=== PATIENT | female | born 2005 | race Caucasian/White ===

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

== ENCOUNTER 2025-01-01 11:56 | Day surgery (SDC) | payer OTHER, SELFPAY ==
--- OUTSIDE RECORDS SUMMARY | 2024-10-13 17:30 | XMS_ITS ---
Author Organization [facility] Address [address] [facility] [address] [place] [address] Care Team Providers Care Production Control Expert Name Role Phone Katt Cuadra Primary Care Provider [phone] KATT CUADRA Unavailable Unavaila ble Migration, Provider Unavailable Unavailable REASON FOR VISIT [facility] Encounter Medications Medication SIG (Take, Route, Fr equency, Duration) Notes Start Date End Date Status OXcarbazepine 150 MG 1 tab(s) orally 2 t imes a day for 30 days 10/21/2022 Active busPIRone HCl 5 MG 1 tab(s) orally 3 ti mes a day for 30 days 10/21/2022 Active Encounters Encounter Location Date Provider Diagnosis [facility] [address] [place] [address] 10/13/2024 Provider Migration Mood disorder F39 Assessments Encounter Date Diagnosis (ICD Code) Assessment Notes Treatment Notes Treatment Clinical Notes Section Notes 10/13/2024 Mood disorder (ICD-10 - F39) Plan Of Treatment Medication Medication Name Sig Start Date Stop Date Notes OXcarbazepine 150 MG 1 tab(s) orally 2 t imes a day for 30 days 10/21/2022 busPIRone HCl 5 MG 1 tab(s) orally 3 ti mes a day for 30 days 10/21/2022 Progress Notes * Roberto RAMOSOB: 3 (19 yo F)Acc No.[id number]:10/13/2024 Patient: Raiza PEÑALOZA Provider: Leida Mitchell :2005 A ge:19 Y S ex:Female Date:10/13/2024 Address:[address] [place] [address], [id number] Pcp:Katt Cuadra Subjective: * Chief Complaints: * 1 . Multum To [facility] Conversion Encounter. * Medical History: Objective: * Vitals: Assessment: * Assessment: 1. M ood disorder - F39 (Primary) Plan: * Treatment: * * Electronic signature of Prov ider Migration on 01/01/2025 at 12:04 PM EDT Sign off status: Pending * Provider: Leida Mitchell Date: 10/13/2024 Generated for Betsy bryant/Julia/Brayan on: 01/01/2025 12:04 PM EDT
[2025-01-01] VITALS (17 sets, daily range): BP systolic 100–143; BP diastolic 55–92; PULSE 51–98; RESP 16–18; TEMP 36.3–36.8; O2SAT 95–100; BMI 29.8
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
--- OUTSIDE RECORDS SUMMARY | 2025-01-01 12:04 | XMS_ITS | Data Portability ---
Author Organization [facility] Address [address] [place] [address] Assessment No assessment recorded. Plan of Treatment Reminders Order Date Submit Date Provider Last Modified By Organization Details Last Modified Time Details Appointments None recorded. Lab PPD (purified protein derivative) , skin test 2024 025 [facility] [address], [address], 14:50:03 Referral None recorded. Procedures None recorded. Surgeries None recorded. Imaging None recorded. Medication Orders tuberculin PPD 5 tub. unit/0.1 mL intradermal injection solution 2024 025 [email or web address] Not available 16:07:09 Patient TargetsNo targets recorded. Patient InstructionsNo instructions recorded. Reason for Referral None Reported. Results Created Date Observation Date Name Description Value Unit Range Abnormal Flag Note LastModifiedBy Organization Detail LastModifiedTime 09/07/1909/07/2024 PPD (lincoln fied prote in deriv ative ), skin test TB negati ve Not Available [place] [address] [facility] [address], [place], [address], 09/05/2024 14:49:18 Result Notes None recorded. Medical Equipment None Reported. Medications Name Sig Start Date Stop Date Status Note LastModified by Organization Details LastModified Time tuberculin PPD 5 tub. unit/0.1 mL intradermal injection solution Inject 0.1 mL by intradermal route. 2024 active Not Available Not Available Not Avai lable Vitals None Recorded Social History None recorded. Functional Status None recorded. Mental Status None recorded. Family History Nothing Reported. Medical History No medical history recorded. Gynecological HistoryNo gynecological history recorded. Obstetrics History GPAL:G 0 P 0 0 0 0 Past Encounters Encounter ID Performer Location Encounter Start Date Encounter Closed Date Diagnosis/Indication Diagnosis SNOMED-CT Code Diagnosis ICD10 Code Diagnosis Note [id number] [facility] [address] [address] 09/05/2024 14:17:49 09/07/2024 03:52:02 History and physical examination, pre-employment 470754588 Z02.1 [id number] [facility] [address] [place] [address] 09/07/2024 14:50:26 09/12/2024 03:52:51 Health Concerns Section Related Observation LastModified by Organization Detai ls LastModified Time None Recorded Concern Status LastModified by Organization Details LastModified Time None Recorded Advance Directives Directive None Recorded Payers Insurance Date Sequence Insurance Name Policy Number Policy Alonzo Covered Member ID Alonzo Member ID Guarantor Name 09/05/2024 [facility] ESCREEN Raiza Harry [id number] Raiza Harry OBGyn Episode No OBEpisode recorded.
--- OUTSIDE RECORDS SUMMARY | 2025-01-01 12:04 | XMS_ITS | Patient Health Record ---
Author Organization [facility] Address [address] [place] [address] Care Team Providers Care Technical Cable Jointer Name Role Phone Katt Cuadra Primary Care Provider [phone] KATT CUADRA Unavailable Unavaila ble Migration, Provider Unavailable Unavailable Allergies No Known Allergies Reason For Referral No Information Medications Medication SIG (Take, Route, Fr equency, Duration) Notes Start Date End Date Status OXcarbazepine 150 MG 1 tab(s) orally 2 t imes a day for 30 days 10/21/2022 Active busPIRone HCl 5 MG 1 tab(s) orally 3 ti mes a day for 30 days 10/21/2022 Active Social History Tobacco Use: Social History Observation Description Date Details (start date - stop date) Current Smoker NA - NA Smoking: Question Answer Notes Are you a: current smoker How often do you smoke cigarettes? every day How many cigarettes a day do you smoke? 6-10 How soon after you wake up do you smoke your fir st cigarette? 6-30 min Are you interested in quitting? Ready to quit Problems Problem Type SNOMED Code ICD Code Onset Dates Problem Status W/U Status Risk Notes Problem [id number] Mood disorder (F39) Active confirmed Problem 51664529 Hyperthyroidism (E05.90) Active confirmed Problem 9576719 Thyromegaly (E01.0) Active confirmed Encounters Encounter Location Date Provider Diagnosis [facility] [address] [place], [place] [address] 10/13/2024 Provider Migration Mood disorder F39 Assessments Encounter Date Diagnosis (ICD Code) Assessment Notes Treatment Notes Treatment Clinical Notes Section Notes 10/13/2024 Mood disorder (ICD-10 - F39) Plan Of Treatment No Information Insurance Providers Payer Name Payer Address Payer Phone Subscriber Number Group Number Insured Name Patient Relationship to Insured Coverage Start Date Coverage End Date A[employer]NA [facility] [address] [address] [place] [id number] Raiza Harry Self - patient is the insured Medical (General) History Medical History History ICD Code Seizures Depression/Anxiety Hyperthyroidism PTSD Surgical History Surgery Date(Month/Year) lip surgery 2021 Hospitalization History Reason Date(Month/Year) [facility] 2018 [facility] 03/2022
--- OUTSIDE RECORDS SUMMARY | 2025-01-01 12:04 | XMS_ITS | Clinical Summary ---
Author Organization [facility] Address [address] [place] [phone] Phone Care Team Providers Care Family Lawyer Name Role Phone Fer Crowe MD Primary Care Physician [ ] Conditions or Problems Problem Name Problem Code Onset Date Status Entry Date Provider Comment Standard Description Annotate School physical 86914943 (SNOMED CT) Active Katina Marques TOOTH CUTTER PINION History and physical examination, school DERMATITIS CONTACT L25.9 (ICD-10-CM ) Inactive Fer Crowe MD Unspecified contact dermatitis, unspecified cause HEAD LICE PEDICULOS B85.2 (ICD-10-CM ) Inactive Fer Crowe MD Pediculosis, unspecified Medications Medication Instructions Start Date Stop Date Generic Name [facility] Provider OVIDE 0.5 % LOTN use as directed/may repeat in 1 wk if necessary 5 MALATHION [id number] Katina Marques TOOTH CUTTER PINION ELOCON 0.1 % EXTERNAL OINTMENT use on dry/chapped skin or insect bites tid as needed 5 MOMETASONE FUROATE [id number] Katina Marques TOOTH CUTTER PINION EL[place]ON 0.1 % EXTERNAL OINTMENT use on dry/chapped skin or insect bites tid as needed MOMETASONE FUROATE [id number] Fer Crowe MD OVIDE 0.5 % LOTN use as directed/may repeat in 1 wk if necessary MALATHION [id number] Fer Crowe MD Medications Administered No information available. Allergies, Adverse Reactions, Alerts Observed no known allergies at Results No information available. Plan of Care Type Date Detail Pending order Vision Screening ; quantitative; bilateral [id number] Pending order Havrix Intramusc ular Suspension 720 EL U/0.5ML VFC Pending order Menactra Intramu scular Injectable VFC Pending order Adacel Intramusc ular Suspension 5-2-15.5 VFC Procedures Code Procedure Name Date Entry Date CPT-39816LDX Havrix Intramuscular Suspension 720 EL U/ 0.5ML VFC CPT-52591JEF Menactra Intramuscular Injectable VFC 201 11/10/05 CPT-17284FGI Adacel Intramuscular Suspension 5-2-15.5 VFC CPT-G8447 Encounter documented using a certified EH R Vital Signs Date Name Value Unit Description BMI (Body Mass Index) 24.54 kg/m2 Bod y Mass Index (Ratio) Body Temperature 98.0 [degF] temperat ure E&M Body Temperature 36.7 Mari temperat ure in centigrade E&M BP Diastolic 60 mm[Hg] blood pressu re, diastolic BP Systolic 90 mm[Hg] blood pressur e, systolic Heart Rate 98 /min pulse rate Height 58 [in_us] height E&M Height 147.32 cm height in cent imeters E&M Respiratory Rate 18 /min respirat ory rate E&M Weight Measured 117 [lb_av] weight E& M Weight Measured 117 [lb_av] weight E& M Weight Measured 53.18 kg weight in kilograms E&M Immunizations Vaccine Administration Date Standard Description CVX Co de Dose vfc havrix intramuscular suspension 720 el u/0.5ml vfc havrix intramuscular suspension 720 el u/0.5ml 83 0.5 mL vfc menactra intramuscular injectable vfc menactra intramuscular injectable 114 0.5 mL vfc adacel intramuscular suspension 5-2-15.5 vfc adacel intramuscular suspension 5-2-15.5 115 0.5 mL Advance Directives No information available.
--- OUTSIDE RECORDS SUMMARY | 2025-01-01 12:05 | XMS_ITS | Clinical Summary ---
Author Organization [facility] Address [address] [place] [address] Care Team Providers Care Disaster Director Name Role Phone Tal Sanches MD Primary Care Provider [phone] Allergies No known active allergies Medications traZODone (Desyrel) 50 MG tablet 03/05/2022 Active hydrOXYzine HCl (Atarax) 25 MG tablet TAKE ONE (1) TABLET EVERY 12 HOURS BY ORAL ROUTE NEEDED FOR 14 DAYS. 03/05/2022 Active Vitamin D3 1.25 MG (15723 UT) capsule Take 50,000 Units by mouth 1 (one) time per week. 03/31/2022 Active sertraline (Zoloft) 50 MG tablet TAKE ONE HALF (1/2) TAB BY MOUTH DAILY FOR FOUR (4) DAYS. THEN, TAKE ONE (1) TAB BY MOUTH DAILY. 03/24/2022 Active levETIRAcetam (Keppra) 1000 MG tablet Take 500 mg by mouth 2 (two) times a day. Active Ventolin HFA 108 (90 Base) MCG/ACT inhaler 10/08/2022 Act jerry busPIRone (Buspar) 15 MG tablet Take 1 tablet (15 mg) by mouth 2 (two) times a day if needed. 05/31/2023 Active citalopram (CeleXA) 20 MG tablet TAKE ONE (1) TABLET EVERY DAY BY ORAL ROUTE FOR 30 DAYS. 06/16/2023 Active Active Problems Problem Noted Date Diagnosed Date Self-limiting autoimmune thy roiditis, transient hyper/hypothyroidism 06/20/2023 Epileptic seizure 06/14/2022 Vitamin D deficiency 06/14/2022 Uncontrolled hypertension 06/14/2022 Hot flashes 04/15/2022 Diarrhea 04/15/2022 Hyperthyroidism 03/16/2022 Sweating increase 03/16/2022 Cough 03/16/2022 Raspy voice 03/16/2022 Palpitation 03/16/2022 Tremor 03/16/2022 Heat intolerance 03/16/2022 Sleep disturbance 03/16/2022 Encounter for smoking cessation counseling 03/16 Social History Tobacco Use Types Packs/Day Years Used Date Smoking Tobacco: Former Cigarettes Smokeless Tobacco: Never Tobacco Cessation:Counseling Given: Not Answered Alcohol Use Standard Drinks/Week Comments Yes 0 (1 standard drink = 0.6 oz pur e alcohol) Occ. Comments No Sex and Gender Information Value Date Recorded Sex Assigned at Not on file Legal Sex Female 4:36 PM EDT Gender Identity Not on file Sexual Orientation Not on file Last Filed Vital Signs Vital Sign Reading Time Taken Comments Blood Pressure 118/82 12/26/2023 3:16 PM EDT Pulse 87 12/26/2023 3:16 PM EDT Temperature - - Respiratory Rate - - Oxygen Saturation - - Inhaled Oxygen Concentration - - Weight 78.9 kg (173 lb 15.1 oz) 12/26/2023 3:16 PM EDT Height 167.6 cm (5' 6 ) 12/26/2023 3:16 PM EDT Body Mass Index 28.08 12/26/2023 3:16 PM EDT Plan of Treatment Health Maintenance Due Date Last Done Comments [facility]-Depression Screening 2003 [facility]-HIV Screening 2003 [facility]-Hepatitis C Screening 2003 [facility]-/Child/Adol SDOH Screenings 2003 [facility]- SDOH Screenings 2021 [facility]-Adult SDOH Screenings 2021 [id number]-[id number]-88 Vaccine (3 - season) 2024 02/20/2021, 01/30/2021 [facility]-Pap Smear 2024 [facility]-DTaP,Tdap,and Td Vaccines (7 - Td or Tdap) 09/13/2024 09/13/2014, 11/09/2007, 07/14/2004, Additional history exists [facility]-Influenza Vaccine (Season Ended) 2025 04/16/2019 [facility]-Zoster Vaccines (1 of 2) 2053 02/18/2009, 03/10/2005 [facility]-HIB Vaccines Completed 07/14/2004, , 2003 [facility]-Hepatitis B Vaccines Completed 005, 2003, 2003 [facility]-Pneumococcal Vaccine: Pediatrics (0 to 5 Years) and At-Risk Patients (6 to 49 Years) Completed 07/14/2004, 02/27/2004, 2003 [facility]-IPV Vaccines Completed 11/09/2007, , 01/02/2004, Additional history exists [facility]-Varicella Vaccines Completed 02/18/2009, 2004 [facility]-Hepatitis A Vaccines Completed 09/13/2014, 02/08 HPV Vaccines Completed 04/21/2021, 08/12, 01/02/2019 [facility]-Obesity Intervention Completed 024, 06/20/2023, 02/16/2023, Additional history exists [facility]-Rotavirus Vaccines Aged Out No lo nger eligible based on patient's age to complete this topic Insurance [employer] Care Teams Disaster Director Relationship Specialty Start Date End Date Tal Sanches MD [address] [place] [address] [facility] - General 06/29/22
--- NOTE | 2025-01-01 12:13 | CT_ITS ---
FINAL REPORT TECHNIQUE: Post contrast axial imaging of the aorta and bilateral lower extremity was obtained and reviewed.This study was performed with techniques to keep radiation doses as low as reasonably achievable (ALARA). Individualized dose reduction techniques using automated exposure control or adjustment of mA and/or kV according to the patient's size were employed. CLINICAL HISTORY: anterior hematoma, rule out extravasation COMPARISON: None FINDINGS: CTA RIGHT LOWER EXTREMITY: The right common iliac, right external iliac, right common femoral, and right superficial femoral arteries are patent and unremarkable in appearance. There is no evidence of extravasation, pseudoaneurysm, or vascular dissection. There is an elliptical fluid collection that overlies the quadriceps musculature, measuring 7.7 cm in width, 14 cm in length, and 1.7 cm in thickness. IMPRESSION: 1. No evidence of acute arterial active bleeding. 2. Elliptical fluid collection overlying the quadriceps musculature, presumed hematoma. Reviewed, Interpreted and Dictated by Silas Oconnell MD Transcribed by Nicki Santacruz Authenticated and [facility]
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
[2025-01-01 12:43] LABS: Urine Pregnancy, HCG Qual. Negative (Negative)
[2025-01-01] MEDS: 0.9 % SODIUM CHLORIDE 50 ML VIAL IV (12:52)
[2025-01-01] MEDS: SODIUM CHLORIDE 0.9% 10ML SYR (RAD ONLY) 10 ML IV (12:52)
[2025-01-01] MEDS: IOPAMIDOL-370 (76%);100ML BOTTLE 100 ML IV (12:53)
--- NOTE | 2025-01-01 13:30 | PC.NURSE ---
DR FAULKNER AT BEDSIDE
--- NOTE | 2025-01-01 13:50 | PC.NURSE ---
Pt ambulated to restroom. Changed into a gown. Belongings place in bag.
--- NOTE | 2025-01-01 14:21 | PC.NURSE ---
MECHANICAL ESTIMATOR NOTIFIED OF ADMISSION
--- NOTE | 2025-01-01 14:21 | EXP.ANES.CKL ---
[facility] Disclaimer: The information contained in this section may have been updated after the patient was seen, as this information can be updated by other users. Medical History Seizures Anemia Thyroid disease Depression Anxiety Migraine Asthma Hypertension Surgical History (Updated 01/01/25 @ 14:21 by Nola Martinez RN) No significant past surgical history Family History (Updated 01/01/25 @ 14:20 by Nola Martinez RN) Other No significant family history Social History (Updated 01/01/25 @ 14:20 by Nola Martinez RN) Smoking Status: Current every day smoker alcohol intake: never substance use type: former substance user, amphetamines and hallucinogens (ACID) current occupational status: student Travel in the last 8 weeks?: None number of children: 0 Have you lived/traveled outside US in past 30 days?: No Contact w/someone who lives/traveled outside US past 30 days?: No Exposure to someone with infectious disease in past 14 days?: No Do you have a fever (greater than 100.4 F or 38 C)?: No Have you tested positive for COVID-19?: No Exposed to someone with COVID-19 in past 14 days?: No Do you have a sore throat?: No Do you have a cough?: No Do you have any weakness?: No Do you have any diarrhea?: No Are you experiencing any unusual bleeding?: No Do you have any muscle aches/pain?: No Do you have any abdominal pain?: No Are you experiencing loss of taste or smell?: No [facility] Anesthesia Checklist Patient Identification Patient Identification: Arm Band Structural Data Admitted From: Emergency Dept Planned Operative Procedure/s: I&D Right Thigh Consent for Planned Operative Procedure(s) Verified: Yes Verified Documents: Surgical Consent and History and Physical NPO Status Verified Time NPO: 10:30 (coffee) Additional verifications Anesthesia Reactions: No Hx Blood Transfusions: No Blood Transfusion Reaction: No Airway Assessment Mallampati Score:: Class II C-Spine Mobility Assessed: Yes TMJ Mobility Assessed: Yes Dentition: Good Dentition Neurological Assessment Level of Consciousness: Awake, Alert and Appropriate Anesthesia Plan Anesthesia Risk discussed: Yes Anesthesia Plan: Verified ASA Class: II Anesthesia Type: General
--- NOTE | 2025-01-01 14:33 | HMH.PHAINT1 ---
Pharmacy Intervention Comments: MEDICATION RECONCILIATION COMPLETED ON PATIENT USING EXTERNAL FILL HISTORY FROM PHARMACY. -ARIA MCKEON, MARLENED
[2025-01-01] MEDS: CEFAZOLIN SODIUM 2 GM in 0.9 % SODIUM CHLORIDE 100 ML IV (14:40)
[2025-01-01] MEDS: BUPIVACAINE 0.5% 30ML VIAL 150 MG (15:01)
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
--- NOTE | 2025-01-01 15:21 | EXP.ANES.I ---
[facility] Anesthesia Record Part I Anesthesia Record I Intake, IV Amount: 800 Hydration: Adequate Estimated blood loss (mL): 5 Urine output (mL): 0 Blood Products used (#): none Blood Pressure: 129/74 SaO2: 100 Pulse Rate: 61 Airway Patency: Patent Respiratory Rate: 16 Temperature: 97.9 F Patient is:: Drowsy and Stable Stable to PACU at:: 15:20
--- NOTE | 2025-01-02 12:11 | P.PNANES_ITS ---
[facility] Anesthesia Record Part II Anesthesia Record Part II Discharge Time: 16:20 Destination: Surgical Day Care (OP Surgery) PACU nurse assessment reviewed?: Yes Patient Condition:: Good Anesthesia Complications:: None Swallowing reflex intact?: Yes Airway Patency: Patent Cyanosis?: No Blood Pressure: 139/80 SaO2: 99 Respiratory Rate: 17 Pulse Rate: 64 Temperature: 97.4 F Mental Status: Alert & Oriented Pain level:: 0 Nausea and/or vomitting:: None Intake, IV Amount: 0 Hydration: Adequate
[2025-01-02 12:15] VITALS: BP 139/80; PULSE 64; RESP 17; TEMP 36.3; O2SAT 99
== END 2025-01-01 16:35 | disposition home or self-care (01) ==
LOC: ER 13:19 → OR 14:13 → 2ND 14:29
PROVIDERS: Emergency Provider Emergency Medicine; Visit Provider Orthopaedic Surgery
PROC: (CPT 27301; principal; 2025-01-01 14:15)
DX: S70.11XA Contusion of right thigh, initial encounter (principal); V86.59XA Driver of other special all-terrain or other off-road motor vehicle injured in nontraffic accident, initial encounter; Y93.89 Activity, other specified; Y92.89 Other specified places as the place of occurrence of the external cause; Y99.8 Other external cause status; I10 Essential (primary) hypertension; J45.909 Unspecified asthma, uncomplicated; F17.210 Nicotine dependence, cigarettes, uncomplicated; R56.9 Unspecified convulsions
CPT/HCPCS: 27301; 73706; 81025; 96374; J0665; J0690; J1100; J2003; J2250; J2405; J2704; J3010; Q9967